=== PATIENT | female | born 1930 | race Caucasian/White ===

== ENCOUNTER 2018-07-06 12:30 | Emergency (ER) | payer MEDICARE, OTHER ==
--- NOTE | 2018-07-06 14:37 | RAD ---
LEFT SHOULDER THREE VIEWS: HISTORY: Fall. Pain. COMPARISON: None. FINDINGS: There does appear to be soft tissue swelling. There is calcification at the rotator cuff tendon inse rtion site. Slight irregularity of the greater tuberosity is noted. No acute fracture. The glenohum eral joint space is preserved. There is narrowing of the acromioclavicular joint space. The visuali zed left ribs do not demonstrate any fracture. IMPRESSION: Chronic changes involving the left shoulder. No evidence of fracture or dislocation. POS: [facility]
== END 2018-07-06 14:11 | disposition home or self-care (01) ==
LOC: ERS 12:30
DX: S40.012A Contusion of left shoulder, initial encounter (principal); M75.32 Calcific tendinitis of left shoulder; E03.9 Hypothyroidism, unspecified; W19.XXXA Unspecified fall, initial encounter

== ENCOUNTER 2020-09-04 10:53 | Outpatient (CLI) | payer MEDICARE | END 2020-09-04 10:54 | disposition home or self-care (01) | LOC: BICMAMMO 10:53 | PROVIDERS: ATTEND Orthopaedic Surgery | DX: Z13.820 Encounter for screening for osteoporosis (principal); N95.9 Unspecified menopausal and perimenopausal disorder; M85.851 Other specified disorders of bone density and structure, right thigh; M85.852 Other specified disorders of bone density and structure, left thigh | CPT/HCPCS: 77080 ==